=== PATIENT | male | born 1975 ===

== ENCOUNTER 2018-01-07 12:21 | Outpatient (CLI) | payer OTHER ==
[~2018-01-07] VITALS: Ht 180.3 cm; Wt 108.9 kg
[2018-01-07] MEDS ORDERED: TRYP500T PO (13:30)
[2018-01-07] MEDS ORDERED: MORP15TA69 PO (13:30)
[2018-01-07] MEDS ORDERED: OLME20TA24 PO (13:30)
[2018-01-07] MEDS ORDERED: TIZA4TAB3 PO (13:30)
[2018-01-07] MEDS ORDERED: CALC600T12 PO (13:30)
[2018-01-07] MEDS ORDERED: ZOLP10TA PO (13:30)
[2018-01-07] MEDS ORDERED: CHOL20003 PO (13:30)
[2018-01-07] MEDS ORDERED: PREG300C PO (13:30)
[2018-01-07] MEDS ORDERED: MULT-517 PO (13:30)
[2018-01-07] MEDS ORDERED: BUPR-42 PO (13:30)
[2018-01-07] MEDS ORDERED: METF-397 PO (13:30)
[2018-01-07] MEDS ORDERED: LEVO1CAP11 PO (13:30)
[2018-01-07] MEDS ORDERED: MELO15TA39 PO (13:30)
[2018-01-07] MEDS ORDERED: TEST100V3 IM (13:30)
[2018-01-07] MEDS ORDERED: SILD20TA14 PO (13:30)
== END 2018-01-07 13:34 | disposition home or self-care (01) ==
LOC: PREOP 12:21
PROVIDERS: ATTEND Orthopaedic Surgery
DX: Z01.818 Encounter for other preprocedural examination (principal)

== ENCOUNTER 2018-01-17 06:05 | Day surgery (SDC) | payer OTHER ==
[~2018-01-17] VITALS: Ht 180.3 cm; Wt 108.9 kg
[~2018-01-17 06:05] MED LIST: BUPR-42 PO; CALC600T12 PO; CHOL20003 PO; LEVO1CAP11 PO; MELO15TA39 PO; METF-397 PO; MORP15TA69 PO; MULT-517 PO; OLME20TA24 PO; PREG300C PO; SILD20TA14 PO; TEST100V3 IM; TIZA4TAB3 PO; TRYP500T PO; ZOLP10TA PO
[2018-01-17 06:25] VITALS: BP 178/107
[2018-01-17] MEDS: LACTATED RINGERS 1,000 ML IV PRN ×2 (06:45→08:30)
[2018-01-17] MEDS ORDERED: ONDANSETRON 4 MG/2 ML (SDV) Z0FRAN ONE (06:56)
[2018-01-17] MEDS ORDERED: proPOfol 200 MG/20 ML (DIPRIVAN) VIAL IV ONE (06:56)
[2018-01-17] MEDS ORDERED: MIDAZOLAM 2 MG/2 ML (VERSED) VIAL ONE ×2 (06:56→07:07)
[2018-01-17] MEDS ORDERED: LIDOCAINE PF 2% 5 ML (XYLOCAINE) VIAL ONE (06:56)
[2018-01-17] MEDS ORDERED: LACTATED RINGERS 0 ML IV ONE (06:56)
[2018-01-17] MEDS ORDERED: fentaNYL INJECTION 100 MCG/2 ML AMP ONE ×2 (06:56→08:35)
[2018-01-17] MEDS ORDERED: SUCCINYLCHOLINE INJ 100 MG/5 ML SYR ONE (06:56)
[2018-01-17] MEDS ORDERED: ROCURONIUM 10 MG/ML 5 ML SYRINGE IV ONE (06:56)
[2018-01-17] MEDS ORDERED: ceFAZolin 2 GM IV Premixed 50 ML IV ONE (07:00)
[2018-01-17] MEDS ORDERED: VANCOMYCIN 1000 MG/VIAL ONE (07:05)
[2018-01-17] MEDS ORDERED: GENTAMICIN 40 MG/ML 2 ML INJ SDV ONE (07:05)
[2018-01-17] MEDS ORDERED: BUP/EPI 0.5% 1:200,000 (SENSORCAINE) 30 ML VIAL ONE (07:05)
[2018-01-17] MEDS ORDERED: MIDAZOLAM 2 MG/2 ML (VERSED) VIAL IV ONE (07:15)
[2018-01-17 07:30] VITALS: BP 141/99
[2018-01-17] MEDS ORDERED: BACITRACIN 100,000 UNIT/NS 1000 ML POUR BOTTLE IR ONE ×2 (08:15)
[2018-01-17] MEDS ORDERED: SEVOFLURANE (ULTANE) 15 ML INHAL SOLN ONE ×3 (08:18→08:53)
[2018-01-17] MEDS ORDERED: morphine INJ 4 MG/ML 1 ML (VIAL/SYRINGE) IVP PRN (09:00)
[2018-01-17] MEDS ORDERED: OXYC1TAB87 PO (09:00)
[2018-01-17] MEDS ORDERED: BACLOFEN 10 MG (LIORESAL) TAB PO SCH (09:00)
[2018-01-17] MEDS ORDERED: oxyCODONE/APAP 5/325MG (PERCOCET 5) TABLET PO PRN (09:00)
--- NOTE | 2018-01-17 09:02 | Discharge Inst-Simple/Standard ---
Discharge Inst-Standard Discharge Medications New, Converted or Re-Newed RX: RX on Chart Patient Instructions/Follow Up Plan of Care/Instructions/FU: dont bend lift reach twist push or pull 5 lb weight restriction follow up 2 weeks Activity as Tolerated: No Discharge Diet: ADA Diet Return to The [facility] For: fever chills shortness of breath chest pain new onsent leg weakness numbness or tingling CAROL HWANG Jan 17, 2018 09:02
[2018-01-17] MEDS ORDERED: morphine INJ 10 MG/ML 1ML (SYR OR VIAL) ONE (09:11)
[2018-01-17] MEDS ORDERED: ONDANSETRON 4 MG/2 ML (SDV) Z0FRAN IVP PRN (09:15)
[2018-01-17] MEDS ORDERED: morphine INJ 10 MG/ML 1ML (SYR OR VIAL) IVP ONE (09:15)
[2018-01-17] MEDS ORDERED: HYDROmorphone 2 MG/ML VIAL (DILAUDID) ONE (09:30)
[2018-01-17] MEDS ORDERED: HYDROmorphone 2 MG/ML VIAL (DILAUDID) IV ONE (09:45)
--- NOTE | 2018-01-17 09:56 | Diagnostic Imaging Report ---
INDICATION: Fluoroscopy during spinal cord stimulator placement. FINDINGS: Fluoroscopy was provided in the OR during spinal cord stimulator placement. 9 seconds of fluoroscopy was utilized. A single image demonstrates a paddle spinal cord stimulator in the midline at approximately the T9-10 level. IMPRESSION: Fluoroscopy during spinal cord stimulator placement. Dictated by: Dictated on workstation # [id number]
[2018-01-17 10:00] VITALS: BP 146/74
[2018-01-17 10:05] VITALS: BP 146/74
[2018-01-17 10:30] VITALS: BP 142/74
[2018-01-17 11:00] VITALS: BP 115/69
--- NOTE | 2018-01-17 13:32 | Anesthesia-General Post-Op ---
General Patient Condition Mental Status/LOC: Same as Preop Cardiovascular: Satisfactory Nausea/Vomiting: Absent Respiratory: Satisfactory Pain: Controlled Complications: Absent Post Op Complications Complications None Follow Up Care/Instructions Patient Instructions None needed. Anesthesia/Patient Condition Patient Condition Patient is doing well, no complaints, stable vital signs, no apparent adverse anesthesia problems. No complications reported per nursing. MOSES ROBISON CRNA Jan 17, 2018 13:32
--- NOTE | 2018-01-17 23:56 | OPERATIVE REPORT ---
DATE OF SERVICE: 01/17/2018 SURGEON: Edilberto Bone DO CLINICAL PHYSICIAN ASSISTANT: MARLEY Dwyer. This is a medically necessary procedure. Assistance was necessary for retraction of vital neurovascular structures. Without an freezer assistant, the procedure would not be possible. PREOPERATIVE DIAGNOSES: 1. Lumbar radiculopathy. 2. Low back pain. 3. Lumbar stenosis. POSTOPERATIVE DIAGNOSES: 1. Lumbar radiculopathy. 2. Low back pain. 3. Lumbar stenosis. PROCEDURES PERFORMED: 1. Placement of spinal cord stimulator paddle lead via thoracic laminotomy. 2. Placement of pulse generator. 3. Complex programming. COMPLICATIONS: None. SPECIMENS: None. ESTIMATED BLOOD LOSS: Minimal. ANESTHESIA: General endotracheal anesthesia with local anesthetic. HISTORY OF PRESENT ILLNESS. The patient is a very pleasant 42-year-old gentleman who presented to me after a successful trial. He did wish to proceed with placement of permanent stimulator. He understood the risks and benefits. DESCRIPTION OF PROCEDURE: The patient was identified by name on wrist band in the preoperative holding area. His operative site was signed, consent was signed. SCDs were placed. Neuromonitor was hooked up. Antibiotics were started. He was taken to the operating room theater and placed under general endotracheal tube anesthesia and then transferred to the operating room table in the prone position. He was prepped and draped in the usual sterile fashion. Formal timeout was conducted. X-ray was then used to lia out the thoracic levels. I then made a midline thoracic incision. I proceeded with bilateral subperiosteal paraspinal muscular approach exposing the posterior elements of interest. Using the Kerrison, I used a Le[place]ell rongeur, Kerrison rongeurs and a high speed bur to perform a laminotomy at the T8-9 interval. I then gained access to the epidural space and carefully placed a [place] [place] Penta lead into the midline position behind the body of T9. I anchored this into the thoracic fascia. I then made a separate right-sided flank incision. I developed a subcutaneous pocket here and I passed the leads from the midline thoracic wound to the flank incision where I hooked up to the pulse generator, final tightened it and I placed the pulse generator deep within the flank wound. Please note we did a series of complex maneuvers which caused this complex programming and ensured that we were in the appropriate position and we were able to achieve equal left and right lower extremity stimulation. When I was happy with the position of the lead, I irrigated, maintained hemostasis, closed utilizing 0 Vicryl followed by 2-0 Vicryl followed by running 3-0 subcuticular stitch. I applied dressings, took the patient in the supine position to the PACU where he awoke without incident. He tolerated the procedure well. The plan at this time is to discharge the patient today. I will see him back in 2 weeks. He knows to keep his wound clean and dry and change the dressings daily. Avoid any bending, twisting, pushing, pulling. Job ID: [id number] DocumentID: [id number] Dictated Date: 01/17/2018 12:02:32 Stock Sorter Date: 01/17/2018 23:55:10 Dictated By: EDILBERTO BONE DO
== END 2018-01-17 11:50 | disposition home or self-care (01) ==
LOC: SDC 06:05
PROVIDERS: ATTEND Orthopaedic Surgery
DX: M48.061 Spinal stenosis, lumbar region without neurogenic claudication (principal); M54.16 Radiculopathy, lumbar region; E11.9 Type 2 diabetes mellitus without complications; E66.01 Morbid (severe) obesity due to excess calories; Z68.33 Body mass index [BMI] 33.0-33.9, adult; Z79.84 Long term (current) use of oral hypoglycemic drugs; Z79.899 Other long term (current) drug therapy
CPT/HCPCS: 82962; 87081